=== PATIENT | male | born 1985 | race American Indian/Alaskan Native ===

== ENCOUNTER 2017-01-11 01:35 | Emergency (ER) | payer SELFPAY ==
[2017-01-11] MEDS ORDERED: BOOSTRIX IM ONE (05:30)
--- NOTE | 2017-01-11 05:33 | Emergency Department Report ---
ED Animal Bite HPI - General Chief Complaint: Animal Bite Stated Complaint: DOG BITE Source: patient Mode of arrival: Ambulatory Limitations: No Limitations - History of Present Illness Initial Comments: 31 year old male presents to ED with dog bite to right lower jaw after his own dog bit him approx before arriving to ED. patient states his dog's shots are up to date. patient is stable, neurologically intact and in no acute distress. MD Complaint: animal bite -: Sudden Location: face Animal: dog Animal Control Notified: No Description: household pet, immunizations UTD Mechanism: bite Pain Description: dull Associated Symptoms: bleeding, other (swelling). denies: loss of consciousness , cough, headache, diaphoresis, shortness of breath - Related Data Patient Tetanus UTD: No Previous Rx's Medication Instructions Recorded Last Taken Type Amoxicillin/K Clav Tab [Augmentin 1 each PO Q8HR #21 tablet 01/11/17 Unknown Rx 500 MG TAB] Meloxicam [Mobic] 7.5 mg PO QDAY #7 tablet 01/11/17 Unknown Rx Allergies Allergy/AdvReac Type Severity Reaction Status Date / Time No Known Allergies Allergy Verified 12/11/14 23:21 ED Review of Systems ROS: Stated complaint: DOG BITE Other details as noted in HPI Constitutional: denies: chills, fever Eyes: denies: eye pain, eye discharge, vision change ENT: denies: ear pain, throat pain Respiratory: denies: cough, shortness of breath, wheezing Cardiovascular: denies: chest pain, palpitations Endocrine: no symptoms reported Gastrointestinal: denies: abdominal pain, nausea, diarrhea Genitourinary: denies: urgency, dysuria Musculoskeletal: denies: back pain, joint swelling, arthralgia Skin: other (2cm laceration to right lower jaw). denies: rash, lesions Neurological: denies: headache, weakness, paresthesias Psychiatric: denies: anxiety, depression Hematological/Lymphatic: denies: easy bleeding, easy bruising ED Past Medical Hx - Past Medical History Previous Medical History?: No - Surgical History Past Surgical History?: No - Social History Smoking Status: Current Every Day Smoker Substance Use Type: Alcohol - Medications Home Medications: Home Medications Medication Instructions Recorded Confirmed Last Taken Type Amoxicillin/K Clav Tab [Augmentin 1 each PO Q8HR #21 tablet 01/11/17 Unknown Rx 500 MG TAB] Meloxicam [Mobic] 7.5 mg PO QDAY #7 tablet 01/11/17 Unknown Rx ED Physical Exam - General Limitations: No Limitations General appearance: alert, in no apparent distress - Head Head exam: Present: atraumatic, normocephalic - Eye Eye exam: Present: normal appearance, EOMI - ENT ENT exam: Present: normal exam, mucous membranes moist - Neck Neck exam: Present: normal inspection, full ROM. Absent: tenderness - Respiratory Respiratory exam: Present: normal lung sounds bilaterally. Absent: respiratory distress, chest wall tenderness - Cardiovascular Cardiovascular Exam: Present: regular rate, normal rhythm. Absent: systolic murmur, diastolic murmur, rubs, gallop - GI/Abdominal GI/Abdominal exam: Present: soft, normal bowel sounds. Absent: distended, tenderness, guarding - Rectal Rectal exam: Present: deferred - Extremities Exam Extremities exam: Present: normal inspection - Back Exam Back exam: Present: normal inspection. Absent: full ROM - Neurological Exam Neurological exam: Present: alert, oriented X3, normal gait - Psychiatric Psychiatric exam: Present: normal affect, normal mood - Skin Skin exam: Present: warm, dry, normal color, other (2cm lac present to right lower jaw, clean appearance. 1cm lac present to midline chin, clean appearance. ). Absent: rash ED Course Vital Signs 01/11/17 01/11/17 01:42 07:23 Temperature 98.5 F Pulse Rate 96 H 87 Respiratory 18 16 Rate Blood Pressure 108/75 Blood Pressure 110/72 [Right] O2 Sat by Pulse 98 100 Oximetry - Laceration /Wound Repair Right Lower Jaw Wound Location: face Wound Length (cm): 2 Wound's Depth, Shape: superficial Wound Explored: clean Irrigated w/ Saline (ccs): 100 Anesthesia: 1% Lidocaine Volume Anesthetic (ccs): 5 Wound Debrided: minimal Wound Repaired With: sutures Suture Size/Type: 6:0, proline Number of Sutures: 3 Layer Closure?: No Sterile Dressing Applied?: Yes Progress: patient tolerated well. bleeding well controlled. Critical care attestation.: If time is entered above; I have spent that time in minutes in the direct care of this critically ill patient, excluding procedure time. ED Disposition Clinical Impression: Dog bite of chin Qualifiers: Encounter type: initial encounter Qualified Code(s): S01.85XA - Open bite of other part of head, initial encounter Disposition: DC-01 TO HOME OR SELFCARE Is pt being admited?: No Does the pt Need Aspirin: No Condition: Stable Instructions: Animal Bite (ED) Additional Instructions: Please return within 4-5 days for suture removal. Prescriptions: Amoxicillin/K Clav Tab [Augmentin 500 MG TAB] 1 each PO Q8HR #21 tablet Meloxicam [Mobic] 7.5 mg PO QDAY #7 tablet Referrals: PRIMARY CARE,MD [Primary Care Provider] - 3-5 Days Medical Decision Making - Radiology Data Radiology results: report reviewed XR soft tissue neck normal examination per radiologist patient tolerated procedure/suture to right lower jaw lac well. 1cm chin laceration not closed/repaired due to patient refusal of not wanting me to cut his ramsey hair. 1cm chin lac left to heal by secondary intention. patient is stable, neurologically intact and in no acute distress. patient agrees and understands to return to ED within 4-5 days for suture removal.
[2017-01-11] MEDS ORDERED: XYLOCAINE 1% MPF 5 mL INFILTRATI ONE (05:48)
[2017-01-11] MEDS ORDERED: TRIPLE ANTIBIOTIC TP ONE (07:11)
[2017-01-11 07:24] VITALS: BP 110/72
--- NOTE | 2017-01-11 07:30 | XRay Report ---
FINAL REPORT PROCEDURE: XRAY SOFT TISSUE NECK TECHNIQUE: Soft tissue neck radiographs, 2 views, including AP and lateral. CPT 24131 HISTORY: OG BITE NECK COMPARISON: No prior studies are available for comparison. FINDINGS: Bone mineralization: Normal. Alignment: Normal. Soft tissues: Epiglottis and hypopharyngeal soft tissues normal. Foreign bodies: None. IMPRESSION: Normal Examination.
== END 2017-01-11 07:22 | disposition home or self-care (01) ==
LOC: ED 01:35
DX: S01.85XA Open bite of other part of head, initial encounter (principal); F17.200 Nicotine dependence, unspecified, uncomplicated; W54.0XXA Bitten by dog, initial encounter; Y93.9 Activity, unspecified; Y92.89 Other specified places as the place of occurrence of the external cause; Y99.9 Unspecified external cause status
CPT/HCPCS: 70360; 90471; 90715; A6250

== ENCOUNTER 2017-01-17 12:24 | Emergency (ER) | payer SELFPAY ==
[2017-01-17 13:03] VITALS: BP 119/69
--- NOTE | 2017-01-17 13:21 | Emergency Department Report ---
Suture/Staple Removal - HPI Chief Complaint: Laceration/Recheck/Suture Stated Complaint: STITCHES REMOVAL Time Seen by Provider: 01/17/17 13:16 When Sutures or Mclean Placed: 5-7 Days Ago Wound Location: R chin/ face ED Review of Systems ROS: Stated complaint: STITCHES REMOVAL Other details as noted in HPI Comment: All other systems reviewed and negative Constitutional: denies: chills, fever Skin: as per HPI, other (no drainage ). denies: change in color ED Past Medical Hx - Past Medical History Previous Medical History?: No - Surgical History Past Surgical History?: No - Social History Smoking Status: Current Some Day Smoker Substance Use Type: Alcohol Suture Removal Exam - Exam General: Vital signs noted. No distress. Alert and acting appropriately. Wound: No Pathologic Erythema, No Tenderness, No Drainage, No Pus, No Wound Dehiscence Other Systems: All other systems reviewed and are unremarkable. ED Course Vital Signs 01/17/17 12:58 Temperature 98.2 F Pulse Rate 89 Respiratory 18 Rate Blood Pressure 119/69 O2 Sat by Pulse 100 Oximetry - Reevaluation(s) Reevaluation #1: 01/17/17 13:21 3 sutures removed. no immediate complications noted - Pulse Oximetry Interpretation Digit-Finger Initial Pulse Oximetry Readin Actions Taken: none ED Recheck [facility] - Differential Diagnosis Suture/Staple Removal Critical Care Time: No Critical care attestation.: If time is entered above; I have spent that time in minutes in the direct care of this critically ill patient, excluding procedure time. ED Disposition Clinical Impression: Visit for suture removal Disposition: DC- TO HOME OR SELFCARE Is pt being admited?: No Does the pt Need Aspirin: No Condition: Stable Instructions: Suture Removal (ED) Referrals: PRIMARY MD CHRISTOPHER [Primary Care Provider] - 3-5 Days JENNIFER FREDERICK MD [Staff Physician] - 3-5 Days [facility] [Outside] - 3-5 Days Time of Disposition: 13:23
== END 2017-01-17 13:52 | disposition home or self-care (01) ==
LOC: ED 12:24
DX: Z48.02 Encounter for removal of sutures (principal)

== ENCOUNTER 2017-03-31 19:40 | Emergency (ER) | payer SELFPAY ==
[2017-03-31 20:01] VITALS: BP 128/92
--- NOTE | 2017-03-31 20:31 | Emergency Department Report ---
HPI - General Chief Complaint: Extremity Injury, Lower Time Seen by Provider: 03/31/17 20:23 - HPI HPI: Patient reports that he is having right foot pain and he doesn't know why his right foot is hurting him. He said this is been going on for a while. Patient states that he has a sore foot. He denies any injury. Pain is 7 out of 10 to his right foot. Denies any numbness or tingling. Pain is achy and no over-the- counter medication taken. Pain worse with walking and better with resting. ED Past Medical Hx - Past Medical History Previous Medical History?: No - Surgical History Past Surgical History?: No - Family History Family history: no significant - Social History Smoking Status: Current Every Day Smoker Substance Use Type: None - Medications Home Medications: Home Medications Medication Instructions Recorded Confirmed Last Taken Type Ibuprofen [Motrin] 600 mg PO Q8H PRN 4 Days #12 tablet 03/31/17 Unknown Rx ED Review of Systems ROS: Stated complaint: RT ANKLE PAIN Other details as noted in HPI Comment: All other systems reviewed and negative Constitutional: no symptoms reported ENT: denies: ear pain, throat pain, congestion Respiratory: no symptoms reported Cardiovascular: denies: chest pain, palpitations, dyspnea on exertion, edema, syncope, paroxysmal nocturnal dyspnea Gastrointestinal: denies: abdominal pain, nausea, vomiting, diarrhea Genitourinary: denies: urgency, dysuria, hematuria, testicular pain, testicular mass Musculoskeletal: arthralgia. denies: back pain, joint swelling, myalgia Skin: denies: rash Neurological: denies: headache, numbness, paresthesias, confusion, abnormal gait , vertigo Physical Exam - Physical Exam Vital Signs: Vital Signs 03/31/17 19:57 Temperature 98.7 F Pulse Rate 103 H Respiratory 16 Rate Blood Pressure 128/92 O2 Sat by Pulse 99 Oximetry Vital Signs 03/31/17 03/31/17 19:57 20:31 Temperature 98.7 F Pulse Rate 103 H 78 Respiratory 16 Rate Blood Pressure 128/92 O2 Sat by Pulse 99 Oximetry General: This is a 31-year-old male well-nourished well-developed in no acute distress. Physical Exam: Head: Normocephalic, atraumatic, no abrasion, no bruising and no contusion. Eyes: Biateral pupils equal and reactive to light, bilateral EOM intact.. Bilateral conjunctival and sclera without injection, normal accommodation. No nystagmus Neck: Supple, No Cervical adenopathy, full range of motion and no C-spine tenderness. Cardiovascular: S1, S2. Regular rate and rhythm. No murmur. Capillary refill is less then 3 seconds. Lungs: Clear to auscultate bilaterally. No rhonchi, wheezes or rales. No chest wall tenderness. No chest contusion. No bruising to chest. MSK: Strength 5/5 in all extremities. No joint deformity or crepitus. Full range of motion to all extremities. No laceration, abrasion or ecchymotic area noted. Patient able to fully flex and extend bilateral knees without any difficulties. Abdomen: Non-tender to palpate in all quadrants, no guarding or rebound tenderness, positive bowel sounds in all quadrants. No CVA tenderness. Extremities: No clubbing, cyanosis or edema. +2 pulses. No neurovascular compromise.. Patient with bunions to lateral outer feet. Bunion to right foot erythema tender to palpate. No induration or fluctuance. Skin: Clean, dry and intact. No rash or lesions. Psych: Normal mood and behavior ED Course Vital Signs 03/31/17 19:57 Temperature 98.7 F Pulse Rate 103 H Respiratory 16 Rate Blood Pressure 128/92 O2 Sat by Pulse 99 Oximetry Vital Signs 03/31/17 03/31/17 19:57 20:31 Temperature 98.7 F Pulse Rate 103 H 78 Respiratory 16 Rate Blood Pressure 128/92 O2 Sat by Pulse 99 Oximetry - Reevaluation(s) Reevaluation #1: 03/31/17 21:41 Patient stable no acute distress uneventful ED stay ED Medical Decision Making - Radiology Data Radiology results: image reviewed interpreted by me: Pt has x-ray of right foot and ankle which showed no acute abnormalities on x- ray images. - Medical Decision Making ED course: Sent here for right foot pain and found to have bunions to feed with tenderness to palpate the bunion to right foot. I discussed the patient that he has a bunion and he will need to follow up with a imaging analyst for further evaluation and treatment. Patient voiced understanding the discharge instruction and treatment plan discharged from the emergency room with prescriptions for Motrint Critical care attestation.: If time is entered above; I have spent that time in minutes in the direct care of this critically ill patient, excluding procedure time. ED Disposition Clinical Impression: Arthralgia of foot, right, Bilateral bunions Disposition: TO HOME OR SELFCARE Is pt being admited?: No Does the pt Need Aspirin: No Condition: Stable Instructions: Arthralgia (ED), Bunion (ED) Additional Instructions: Please avoid putting pressure to bunion. Follow up with imaging analyst as instructed take Motrin and this will help with pain Prescriptions: Ibuprofen [Motrin] 600 mg PO Q8H PRN 4 Days #12 tablet PRN Reason: Pain Referrals: MATHEUS MARTINEZ DPM [Staff Physician] - 3-5 Days Forms: Work/School Release Form(ED)
--- NOTE | 2017-03-31 22:55 | XRay Report ---
FINAL REPORT EXAM: XR RT ANKLE CLINICAL INDICATIONS: SWOLLEN AND PAINFUL RT ANKLE FINDINGS: AP and lateral views of the right ankle were acquired and demonstrate no fracture or malalignment of the right ankle. No soft tissue swelling is seen. IMPRESSION: NO FRACTURE IS SEEN IN THE RIGHT ANKLE
--- NOTE | 2017-03-31 22:56 | XRay Report ---
FINAL REPORT EXAM: XR RT FOOT CLINICAL INDICATIONS: SWOLLEN RT FOOT FINDINGS: AP and lateral views of the right foot were acquired. No fracture is seen in the right foot. The third and fourth metatarsals appear to be short on a developmental basis. There is no plantar calcaneal spur. IMPRESSION: NO FRACTURE IS SEEN IN THE RIGHT FOOT
== END 2017-03-31 21:51 | disposition home or self-care (01) ==
LOC: ED 19:40
DX: M21.612 Bunion of left foot (principal); M21.611 Bunion of right foot; F17.200 Nicotine dependence, unspecified, uncomplicated
CPT/HCPCS: 99283

== ENCOUNTER 2017-07-04 23:13 | Emergency (ER) | payer SELFPAY | END 2017-07-05 00:08 | disposition left against medical advice (07) | LOC: ED 23:13 | DX: R05 Cough (principal); Z53.21 Procedure and treatment not carried out due to patient leaving prior to being seen by health care provider ==

== ENCOUNTER 2017-11-01 08:08 | Emergency (ER) | payer SELFPAY ==
[2017-11-01] MEDS ORDERED: ASPIRIN PO ONE (08:33)
--- NOTE | 2017-11-01 08:40 | Emergency Department Report ---
ED Chest Pain HPI - General Chief Complaint: Chest Pain Stated Complaint: SOB/ BAD COUGH Time Seen by Provider: 11/01/17 08:40 Source: patient Mode of arrival: Ambulatory Limitations: No Limitations - History of Present Illness MD Complaint: chest pain -: This morning Onset: during rest Pain Location: left chest Pain Radiation: none Severity: moderate Quality: sharp Consistency: intermittent Improves With: rest Worsens With: other (Coughing) re: denies: nausea, vomting, diaphoresis Other Symptoms: cough Treatments Prior to Arrival: none Aspirin use within the Past 7 Days: (0) No - Related Data On Oral Contraceptives: No Home Medications Medication Instructions Recorded Confirmed Last Taken No Known Home Medications [No 11/01/17 11/01/17 Unknown Reported Home Medications] Allergies Allergy/AdvReac Type Severity Reaction Status Date / Time No Known Allergies Allergy Verified 12/11/14 23:21 Heart Score - HEART Score History: Moderately suspicious EKG: Non-specific Age: < 45 Risk factors: No known risk factors Troponin: < normal limit HEART Score: 2 - Critical Actions Critical Actions: 0-3 pts:0.9-1.7%risk of adverse cardiac event.Candidate for discharge ED Review of Systems ROS: Stated complaint: SOB/ BAD COUGH Other details as noted in HPI Comment: All other systems reviewed and negative Constitutional: denies: chills, fever Eyes: denies: eye pain ENT: denies: ear pain Respiratory: cough. denies: shortness of breath Cardiovascular: chest pain. denies: palpitations, syncope Endocrine: no symptoms reported Gastrointestinal: denies: abdominal pain, nausea, vomiting, diarrhea Genitourinary: denies: urgency, dysuria, frequency Musculoskeletal: denies: back pain Skin: denies: rash, lesions Neurological: denies: headache, weakness, numbness Psychiatric: denies: anxiety, depression Hematological/Lymphatic: denies: easy bleeding, easy bruising ED Past Medical Hx - Past Medical History Previous Medical History?: No - Surgical History Past Surgical History?: No - Social History Smoking Status: Current Every Day Smoker Substance Use Type: None - Medications Home Medications: Home Medications Medication Instructions Recorded Confirmed Last Taken Type No Known Home Medications [No 11/01/17 11/01/17 Unknown History Reported Home Medications] ED Physical Exam - General Limitations: No Limitations General appearance: alert, in no apparent distress - Head Head exam: Present: atraumatic, normocephalic, normal inspection - Eye Eye exam: Present: normal appearance, PERRL, EOMI Pupils: Present: normal accommodation - ENT ENT exam: Present: normal exam, normal orophraynx, mucous membranes moist - Neck Neck exam: Present: normal inspection, full ROM. Absent: tenderness - Respiratory Respiratory exam: Present: normal lung sounds bilaterally. Absent: respiratory distress, wheezes, rales, rhonchi, stridor - Cardiovascular Cardiovascular Exam: Present: regular rate, normal rhythm, normal heart sounds - GI/Abdominal GI/Abdominal exam: Present: soft, normal bowel sounds. Absent: distended, tenderness, guarding, rebound - Extremities Exam Extremities exam: Present: normal inspection, full ROM, normal capillary refill - Back Exam Back exam: Present: normal inspection, full ROM. Absent: tenderness - Neurological Exam Neurological exam: Present: alert, oriented X3, CN II-XII intact - Psychiatric Psychiatric exam: Present: normal affect, normal mood - Skin Skin exam: Present: warm, dry, intact, normal color. Absent: rash ED Course Vital Signs 11/01/17 11/01/17 11/01/17 08:21 08:30 08:34 Temperature 98.5 F Pulse Rate 100 H 113 H Respiratory 18 20 18 Rate Blood Pressure 124/90 O2 Sat by Pulse 95 100 Oximetry 11/01/17 11/01/17 08:46 09:00 Temperature Pulse Rate 87 79 Respiratory 14 17 Rate Blood Pressure 141/99 141/99 O2 Sat by Pulse 100 100 Oximetry - Reevaluation(s) Reevaluation #1: 11/01/17 11:33 I consulted the resolution manager donor processor Dr Martel. He wants patient admited and worked up for chest pain but he said patient does not meet the criteria for PCI in the cath. lab currently. I discussed patient care with the hospitalist donor processor Dr Hendricks. He will admit patient for further evaluation and management. CLAY score - Clay Score Age > 65: (0) No Aspirin use within the Past 7 Days: (0) No 3 or more CAD Risk Factors: (0) No 2 or more Angina events in past 24 hrs: (0) No Known CAD with more than 50% Stenosis: (0) No Elevated Cardiac Markers: (0) No ST Deviation Greater than 0.5mm: (1) Yes CLAY Score: 1 ED Medical Decision Making - Lab Data Result diagrams: 11/01/17 08:37 11/01/17 08:37 - EKG Data -: EKG Interpreted by Me EKG shows normal: sinus rhythm Rate: tachycardia (103) - EKG Data When compared to previous EKG there are: previous EKG unavailable Interpretation: other (ST elevation in the anterior leads but no reciprocal changes in the inferior leads to make the diagnosis for STEMI per Dr Martel the Patient Companion donor processor.) - Radiology Data Radiology results: report reviewed, image reviewed - Medical Decision Making Chest Pain. Critical care attestation.: If time is entered above; I have spent that time in minutes in the direct care of this critically ill patient, excluding procedure time. ED Disposition Clinical Impression: Chest pain Qualifiers: Chest pain type: unspecified Qualified Code(s): R07.9 - Chest pain, unspecified Disposition: DC-09 OP ADMIT IP TO THIS HOSP Is pt being admited?: Yes Does the pt Need Aspirin: Yes Condition: Stable Instructions: Chest Pain (ED) Referrals: PRIMARY CARE, [Primary Care Provider] - 3-5 Days Time of Disposition: 11:10
[2017-11-01] MEDS ORDERED: NACL 0.9% 1000 ML 1,000 ML IV ONE (08:43)
[2017-11-01 09:08] LABS: Basophils # (Auto) 0.1 K/mm3 (0.0-0.1); Basophils % (Auto) 0.9 % (0.0-1.8); Eosinophils # (Auto) 0.6 K/mm3 (0.0-0.4); Eosinophils % (Auto) 11.6 % (0.0-4.3); Hematocrit 47.7 % (35.5-45.6); Hemoglobin 15.9 gm/dl (11.8-15.2); Lymphocytes # (Auto) 2.2 K/mm3 (1.2-5.4); Lymphocytes % (Auto) 40.4 % (13.4-35.0); Mean Corpuscular HGB Conc 33 % (32-34); Mean Corpuscular Hemoglobin 28 pg (28-32); Mean Corpuscular Volume 83 fl (84-94); Monocytes # (Auto) 0.6 K/mm3 (0.0-0.8); Monocytes % (Auto) 10.2 % (0.0-7.3); Platelet Count 291 K/mm3 (140-440); Red Blood Count 5.73 M/mm3 (3.65-5.03); Red Cell Distribution Width 13.3 % (13.2-15.2)
[2017-11-01 09:19] LABS: INR 0.95 (0.87-1.13)
--- NOTE | 2017-11-01 09:22 | XRay Report ---
AP CHEST: HISTORY: chest pain AP view of the chest demonstrates a normal mediastinal and cardiac contour with clear lungs and normal bony and soft tissue structures. IMPRESSION: Unremarkable AP chest.
[2017-11-01 09:29] LABS: BUN/Creatinine Ratio 16; Blood Urea Nitrogen 11 mg/dL (9-20); Calcium 9.3 mg/dL (8.4-10.2); Hemolysis Index 21
[2017-11-01 09:32] LABS: Alanine Aminotransferase 109 units/L (7-56); Albumin 4.4 g/dL (3.9-5); Bilirubin,Direct < 0.2 mg/dL (0-0.2)
[2017-11-01 10:44] LABS: Bilirubin,Urine NEG (Negative); Blood,Urine NEG (Negative); Color,Urine Yellow (Yellow); Mucus,Urine FEW /HPF; Protein,Urine <15 mg/dL mg/dL (Negative); Urobilinogen,Urine < 2.0 mg/dL (<2.0)
[2017-11-01 10:59] LABS: Amphetamine Screen,Urine PRESUMPTIVE NEGATIVE; Benzodiazepines Screen,Urine PRESUMPTIVE NEGATIVE; Cannabinoid Screen,Urine PRESUMPTIVE NEGATIVE; Cocaine Screen,Urine PRESUMPTIVE NEGATIVE; Methadone Screen,Urine PRESUMPTIVE NEGATIVE; Opiate Screen,Urine PRESUMPTIVE NEGATIVE
--- NOTE | 2017-11-01 11:02 | History and Physical Report ---
History of Present Illness Chief complaint: Im coughing, and my chest is tight History of present illness: 32 YO Male with Nicotine Dependence presents to ED for evaluation. Pt states that he has experienced productive cough of yellow-green sputum which was followed by pain in his chest. Pt states that pain is 3/10, substernal, intermittent, sharp, not worsened with exertion, or relieved with rest. Pt seen and evaluated in ED. Pt left AMA prior to completion of workup. Past History Past Medical History: No medical history (Nicotine Dependence) Past Surgical History: No surgical history, Other (reviewed) Social history: smoking Family history: no significant family history Medications and Allergies Allergies Allergy/AdvReac Type Severity Reaction Status Date / Time No Known Allergies Allergy Verified 12/11/14 23:21 Home Medications Medication Instructions Recorded Confirmed Last Taken Type Ciprofloxacin HCl [Ciprofloxacin 500 mg PO Q12H #12 tab 11/01/17 Unknown Rx TAB] Pantoprazole [Protonix TAB] 20 mg PO QDAY #30 tablet. 11/01/17 Unknown Rx Prednisone [predniSONE 10 mg 10 mg PO .TAPER #1 tab.ds.pk 11/01/17 Unknown Rx (6-Day Pack, 21 Tabs)] Review of Systems Constitutional: no weight loss, no weight gain, no fever, no chills, no sweats Ears, nose, mouth and throat: no ear pain, no ear discharge, no tinnitis, no decreased hearing, no nose pain, no nasal congestion, no nasal discharge, no sinus pressure Cardiovascular: no chest pain, no orthopnea, no palpitations, no rapid/ irregular heart beat, no edema, no syncope Respiratory: cough with sputum, no cough, no excessive sputum, no hemoptysis, no shortness of breath Gastrointestinal: no abdominal pain, no nausea, no vomiting, no diarrhea, no constipation, no change in bowel habits Genitourinary Male: no dysuria, no hematuria, no flank pain, no discharge, no urinary frequency Rectal: no pain, no incontinence, no bleeding Musculoskeletal: no neck stiffness, no neck pain, no shooting arm pain, no arm numbness/tingling, no low back pain, no shooting leg pain Integumentary: no rash, no pruritis, no redness, no sores, no wounds Neurological: no paralysis, no weakness, no parathesias, no numbness, no tingling, no seizures, no syncope Psychiatric: no anxiety, no memory loss, no change in sleep habits, no sleep disturbances, no insomnia, no hypersomnia, no change in appetite, no change in libido, no suicidal ideation Endocrine: no cold intolerance, no heat intolerance, no polyphagia, no excessive thirst, no polydipsia, no polyuria, no nocturia, no excessive sweating Hematologic/Lymphatic: no easy bruising, no easy bleeding, no lymphadenopathy, no lymphedema Allergic/Immunologic: no urticaria, no allergic rhinitis, no wheezing, no persistent infections, no anaphylaxis, no angioedema Exam - Constitutional Vitals: Temp Pulse Resp BP Pulse Ox 98.5 F 79 17 141/99 100 11/01/17 08:21 11/01/17 09:00 11/01/17 09:00 11/01/17 09:00 11/01/17 09:00 General appearance: Present: no acute distress, well-nourished - EENT Eyes: Present: PERRL ENT: hearing intact, clear oral mucosa - Neck Neck: Present: supple, normal ROM - Respiratory Respiratory effort: normal Respiratory: bilateral: CTA - Cardiovascular Heart Sounds: Present: S1 & S2. Absent: rub, click - Extremities Extremities: pulses symmetrical, No edema Peripheral Pulses: within normal limits - Abdominal General gastrointestinal: Present: soft, non-tender, non-distended, normal bowel sounds Male genitourinary: Present: normal - Integumentary Integumentary: Present: clear, warm, dry - Musculoskeletal Musculoskeletal: gait normal, strength equal bilaterally - Psychiatric Psychiatric: appropriate mood/affect, intact judgment & insight - Neurologic Neurologic: CNII-XII intact, moves all extremities Results - Labs CBC & Chem 7: 11/01/17 08:37 11/01/17 08:37 Labs: Abnormal lab results 11/01/17 11/01/17 11/01/17 Range/Units 08:37 08:37 08:52 RBC 5.73 H (3.65-5.03) M/mm3 Hgb 15.9 H (11.8-15.2) gm/dl Hct 47.7 H (35.5-45.6) % MCV 83 L (84-94) fl Lymph % (Auto) 40.4 H (13.4-35.0) % Crawford % (Auto) 10.2 H (0.0-7.3) % Eos % (Auto) 11.6 H (0.0-4.3) % Eos # 0.6 H (0.0-0.4) K/mm3 Seg Neutrophils % 36.9 L (40.0-70.0) % Chloride 95.5 L (98-107) mmol/L Creatinine 0.7 L (0.8-1.5) mg/dL Glucose 105 H (75-100) mg/dL AST 133 H (5-40) units/L ALT 109 H (7-56) units/L Assessment and Plan - Patient Problems (1) ACS (acute coronary syndrome) Status: Acute Plan to address problem: Serial cardiac enzymes, ekg, telemetry, supportive care. Pt left AMA prior to completion of workup. (2) Nicotine dependence with withdrawal Status: Acute Qualifiers: Nicotine product type: cigarettes Qualified Code(s): F17.213 - Nicotine dependence, cigarettes, with withdrawal Plan to address problem: smoking cessation counseling,
[2017-11-01 12:38] LABS: Hepatitis A Antibody IgM Non-Reactive (NonReactive); Hepatitis B Core IgM Non-Reactive (NonReactive); Hepatitis B Surface Antigen Non-Reactive (Negative); Hepatitis C Virus Antibody Non-Reactive (NonReactive)
[2017-11-01 13:35] VITALS: BP 126/89
== END 2017-11-01 16:02 | disposition admitted as inpatient to this hospital (09) ==
LOC: ED 08:08
DX: R07.9 Chest pain, unspecified (principal); F17.200 Nicotine dependence, unspecified, uncomplicated; Z79.899 Other long term (current) drug therapy
CPT/HCPCS: 36415; 71045; 80048; 80074; 80307; 81001; 82550; 83880; 84484; 85025; 85379; 85610; 85730; 87806; 93005; 93010; 99284; J7030

== ENCOUNTER 2018-08-04 18:24 | Emergency (ER) | payer OTHER ==
[2018-08-04 18:56] VITALS: BP 113/78
[2018-08-04] MEDS ORDERED: NORCO 5/325 PO ONE (22:36)
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
== END 2018-08-05 00:27 | disposition home or self-care (01) ==
LOC: ED 18:24
DX: S01.512A Laceration without foreign body of oral cavity, initial encounter (principal); S16.1XXA Strain of muscle, fascia and tendon at neck level, initial encounter; R68.84 Jaw pain; F17.200 Nicotine dependence, unspecified, uncomplicated; V49.49XA Driver injured in collision with other motor vehicles in traffic accident, initial encounter; Y93.89 Activity, other specified; Y92.410 Unspecified street and highway as the place of occurrence of the external cause; Y99.8 Other external cause status; R51 Headache
CPT/HCPCS: 70450; 70486; 72125